=== PATIENT | male | born 1965 | race Asian ===

== ENCOUNTER 2022-06-25 17:28 | Emergency (ER) | payer OTHER ==
[~2022-06-25] VITALS: Ht 167.6 cm; Wt 77.1 kg
[2022-06-25 17:36] VITALS: BP 122/73
[2022-06-25] MEDS ORDERED: LIDO15SO4 PO ×2 (18:08→18:35)
[2022-06-25] MEDS ORDERED: IBUP-2213 PO ×2 (18:08→18:35)
[2022-06-25] MEDS ORDERED: PROM118S5 PO ×2 (18:08→18:35)
[2022-06-25] MEDS ORDERED: SUD30 PO ×2 (18:08→18:35)
--- NOTE | 2022-06-25 18:48 | NUR ---
Patient discharged with v/s stable. Written and verbal after care instructions given and explained. Patient alert, oriented and verbalized understanding of instructions. Ambulatory with steady gait. All questions addressed prior to discharge. ID band removed. Patient advised to follow up with PMD. Rx of IBUPROFEN, LIDOCAINE HCL, PROMETHAZINE-DM, SUDAFED given. Patient educated on indication of medication including possible reaction and side effects. Opportunity to ask questions provided and answered.
== END 2022-06-25 18:48 | disposition home or self-care (01) ==
LOC: MED 17:28
DX: J06.9 Acute upper respiratory infection, unspecified (principal); Z20.822 Contact with and (suspected) exposure to COVID-19; E11.9 Type 2 diabetes mellitus without complications; I10 Essential (primary) hypertension; Z79.4 Long term (current) use of insulin; Z79.899 Other long term (current) drug therapy
CPT/HCPCS: 99283